=== PATIENT | female | born 1960 | race Caucasian/White ===

== ENCOUNTER 2016-10-06 13:58 | Emergency (ER) | payer OTHER ==
--- NOTE | ~2016-10-06 | EKG ---
PATIENT: MIRA GUERRERO UNIT #: [id number] Ventricular Rate: 76 BPM Atrial Rate: 76 BPM P-R Interval: 136 ms QRS Duration: 88 ms Q-T Interval: 386 ms QTC Calculation(Bezet): 434 ms P [place]: 63 degrees Calculated R [place]: -22 degrees Calculated T [place]: 3 degrees Diagnosis Line: Normal sinus rhythm Diagnosis Line: Inferior infarct , age undetermined Diagnosis Line: Abnormal ECG Diagnosis Line: When compared with ECG of 29-FEB-2016 12:56, Diagnosis Line: Sinus rhythm has replaced Atrial fibrillation Diagnosis Line: Vent. rate has decreased BY 47 BPM Diagnosis Line: ST no longer depressed in Lateral leads Diagnosis Line: T wave inversion no longer evident in Diagnosis Line: Anterolateral leads Diagnosis Line: Confirmed by KENNEDY REHMAN, AYAAN ([id number]) on 10/08/2016 Diagnosis Line: 4:27:12 PM INTERPRETING MD: KENNEDY REHMAN
[~2016-10-06 13:58] MED LIST: ADRENOID CAPSU1 EACH PO; BACLOFEN10 MG PO; GLIPIZIDE10 MG/BOTT PO; LASIX20 MG PO; LOVASTATIN20 M1 PO; METFORMIN PO; PHENERGAN25 M1 PO; STOOL SOFTENER1 EAC1 PO; TRAMADOL HCL50 M2 PO; VIT B-12 PO; XANAX0.5 MG PO; ZANTAC150 MG PO
[2016-10-06 15:01] LABS: BASOPHIL# 0.1 X10e3 (0-0.3); BASOPHIL% 0.8 % (0-2.5); EOSINOPHIL# 1.5 X10e3 (0-0.7); HEMATOCRIT 34.7 % (35.0-45.0); HEMOGLOBIN 11.5 gm/dL (12.0-16.0); LYMPHOCYTE# 1.8 X10e3 (1.0-3.5); MEAN CELL VOLUME 85.3 FL (83-96); MEAN CORPUSCULAR HEMOGLOBIN 28.1 PG (28-34); MEAN PLATELET VOLUME 8.4 FL (6.5-11.5); MONOCYTE# 0.5 X10e3 (0-1.0); NEUTROPHIL# 8.8 X10e3 (1.5-7.1); NEUTROPHIL% 69.2 % (40-75); PLATELET COUNT 301 X10e3 (140-420); RED BLOOD COUNT 4.07 X10e (3.90-5.30); RED CELL DISTRIBUTION WIDTH 13.8 % (11.0-15.5); WHITE BLOOD COUNT 12.7 X10e3 (4.0-10.5)
[2016-10-06 15:12] LABS: DIFF IND NO
[2016-10-06 15:14] LABS: ALBUMIN SERUM 3.4 g/dL (3.5-5.0); BILIRUBIN,TOTAL 0.9 mg/dL (0.2-2.0); BUN/CREATININE RATIO 27.27; CALCIUM SERUM 9.1 mg/dL (8.4-10.2); CREATININE SERUM 1.1 mg/dL (0.6-1.4); GLOM FILT RATE Estimated 56.9 mL/min (>60); POTASSIUM 4.7 mmol/L (3.5-5.1); PROTEIN TOTAL SERUM 6.6 g/dL (6.0-8.3)
== END 2016-10-06 16:10 | disposition home or self-care (01) ==
LOC: CED 13:58
PROVIDERS: Student in an Organized Health Care Education/Training Program
DX: E87.5 Hyperkalemia (principal); E11.9 Type 2 diabetes mellitus without complications; Z90.49 Acquired absence of other specified parts of digestive tract; Z88.8 Allergy status to other drugs, medicaments and biological substances
CPT/HCPCS: 36415; 80053; 85025; 93005; 99283